=== PATIENT | female | born 1990 | race Two or more races ===

== ENCOUNTER 2019-03-01 23:34 | Emergency (ER) | payer OTHER ==
[~2019-03-01] VITALS: Ht 149.9 cm; Wt 60.3 kg
[2019-03-02] MEDS ORDERED: PRENATAL + DHA1 EAC1 (00:02)
[2019-03-02] MEDS ORDERED: ZOFRAN4 MG (00:02)
== END 2019-03-02 07:29 | disposition home or self-care (01) ==
LOC: ER 23:34
DX: R10.32 Left lower quadrant pain (principal); N23 Unspecified renal colic

== ENCOUNTER → 2019-05-06 | Emergency (ER) | payer OTHER ==
[~2019-05-06] VITALS: Ht 149.9 cm; Wt 60.8 kg
[~2019-05-06] MED LIST: PRENATAL + DHA1 EAC1; ZOFRAN4 MG
== END | disposition home or self-care (01) ==
LOC: ER 17:55
DX: O26.892 Other specified pregnancy related conditions, second trimester (principal); S30.0XXA Contusion of lower back and pelvis, initial encounter; R10.2 Pelvic and perineal pain; Z34.02 Encounter for supervision of normal first pregnancy, second trimester; W18.39XA Other fall on same level, initial encounter; Y93.89 Activity, other specified; Y92.89 Other specified places as the place of occurrence of the external cause; Y99.8 Other external cause status

== ENCOUNTER 2019-09-13 17:53 | Inpatient (IN) | payer OTHER ==
[~2019-09-13] VITALS: Ht 149.9 cm; Wt 63.5 kg
== END 2019-09-17 12:51 | disposition home or self-care (01) | DRG 788 ==
LOC: LDR 17:53 → OB/GYN 17:53 → LDR 18:04 → O/R 20:17 → OB/GYN 21:44
PROVIDERS: ADMIT Specialist
PROC: 4A1HXFZ Monitoring of Products of Conception, Cardiac Rhythm, External Approach (ICD-10-PCS; 2019-09-13)
PROC: 10D00Z1 Extraction of Products of Conception, Low, Open Approach (ICD-10-PCS; principal; 2019-09-13 18:00)
DX: O34.211 Maternal care for low transverse scar from previous cesarean delivery (principal); Z3A.39 39 weeks gestation of pregnancy; Z37.0 Single live birth

== ENCOUNTER 2022-07-07 21:20 | Emergency (ER) | payer OTHER ==
[~2022-07-07] VITALS: Ht 149.9 cm; Wt 59.0 kg
== END 2022-07-08 03:53 ==
LOC: ER 21:20
DX: O03.9 Complete or unspecified spontaneous abortion without complication (principal)

== ENCOUNTER 2022-12-12 08:29 | Emergency (ER) | payer OTHER ==
[~2022-12-12] VITALS: Ht 149.9 cm; Wt 60.8 kg
== END 2022-12-12 12:00 | disposition home or self-care (01) ==
LOC: ER 08:29
DX: J10.1 Influenza due to other identified influenza virus with other respiratory manifestations (principal); Z20.822 Contact with and (suspected) exposure to COVID-19; Z91.013 Allergy to seafood

== ENCOUNTER 2023-09-25 15:33 | Emergency (ER) | payer OTHER ==
[~2023-09-25] VITALS: Ht 149.9 cm; Wt 59.0 kg
[2023-09-25 16:36] LABS: HEMATOCRIT 35.5 % (36.0-45.00); HEMOGLOBIN 12.3 g/dL (12.0-15.00); MEAN CELL VOLUME 87.9 fL (80.00-100.00); MEAN CORPUSCULAR HEMOGLOBIN 30.6 pg (27.00-32.0); MEAN CORPUSCULAR HGB CONC 34.8 g/dl (32.0-36.0); PLATELET COUNT 225 K/uL (150-450); RED BLOOD COUNT 4.04 M/uL (4.00-6.00); RED CELL DISTRIBUTION WIDTH 13.7 % (11.5-14.5)
[2023-09-25 17:01] LABS: INR 0.94; PARTIAL THROMBOPLASTIN TIME 26.9 SECONDS (22.0-34.0); PROTHROMBIN TIME 9.9 SECONDS (9.0-11.5)
[2023-09-25 17:21] LABS: ALBUMIN 3.4 gm/dL (3.4-5.0); BILIRUBIN TOTAL 0.38 mg/dL (0.3-1.2); CALCIUM 8.7 mg/dL (8.5-10.1); CREATININE SERUM 0.58 mg/dL (0.55-1.02); GFR 122.06; POTASSIUM 3.15 mEq/L (3.5-5.1); TOTAL PROTEIN 7.4 gm/dL (6.4-8.2)
[2023-09-25 17:39] LABS: URINE APPEARANCE Clear; URINE BILIRRUBIN Negative (NEGATIVE); URINE BLOOD Trace; URINE COLOR Yellow; URINE GLUCOSE Negative (NEGATIVE); URINE LEUKOCYTE Negative; URINE NITRATE Negative; URINE PROTEIN Negative (NEGATIVE)
[2023-09-25 17:40] LABS: URINE BACTERIA 1235.9 uL (0.0-1933); URINE EPITHELIAL CELLS 26.2 uL (0.0-38.8); URINE WBC 25.3 uL (0.0-23.2)
== END 2023-09-25 17:48 | disposition home or self-care (01) ==
LOC: ER 15:33
PROVIDERS: General Practice
DX: O20.8 Other hemorrhage in early pregnancy (principal); Z3A.01 Less than 8 weeks gestation of pregnancy; Z91.013 Allergy to seafood

== ENCOUNTER 2024-02-20 13:52 | Outpatient (CLI) | payer OTHER | END 2024-02-20 13:53 | disposition home or self-care (01) | LOC: PRENATAL 13:52 | PROVIDERS: ATTEND Obstetrics & Gynecology Maternal & Fetal Medicine | DX: O26.843 Uterine size-date discrepancy, third trimester (principal); O34.219 Maternal care for unspecified type scar from previous cesarean delivery; O36.0930 Maternal care for other rhesus isoimmunization, third trimester, not applicable or unspecified; Z3A.28 28 weeks gestation of pregnancy ==

== ENCOUNTER 2024-03-28 15:09 | Outpatient (CLI) | payer OTHER | END 2024-03-28 15:10 | disposition home or self-care (01) | LOC: PRENATAL 15:09 | PROVIDERS: ATTEND Obstetrics & Gynecology Maternal & Fetal Medicine | DX: O26.849 Uterine size-date discrepancy, unspecified trimester (principal); O36.8199 Decreased fetal movements, unspecified trimester, other fetus; O34.219 Maternal care for unspecified type scar from previous cesarean delivery; O36.1999 Maternal care for other isoimmunization, unspecified trimester, other fetus; Z3A.34 34 weeks gestation of pregnancy ==